=== PATIENT | female | born 1950 | race Two or more races ===

== ENCOUNTER 2018-02-07 09:55 | Outpatient (CLI) | payer OTHER | END 2018-02-07 16:02 | disposition home or self-care (01) | LOC: RAD 501 09:55 | DX: M47.817 Spondylosis without myelopathy or radiculopathy, lumbosacral region (principal); M16.11 Unilateral primary osteoarthritis, right hip; M16.12 Unilateral primary osteoarthritis, left hip ==

== ENCOUNTER 2018-12-17 12:30 | Outpatient (CLI) | payer OTHER | END 2018-12-17 13:48 | disposition home or self-care (01) | LOC: RAD 12:30 | DX: J44.9 Chronic obstructive pulmonary disease, unspecified (principal) ==

== ENCOUNTER 2019-11-13 13:33 | Outpatient (CLI) | payer OTHER | END 2019-11-13 14:29 | disposition home or self-care (01) | LOC: RAD 13:33 | DX: M12.89 Other specific arthropathies, not elsewhere classified, multiple sites (principal); J44.9 Chronic obstructive pulmonary disease, unspecified ==

== ENCOUNTER 2019-11-26 09:23 | Outpatient (CLI) | payer OTHER | END 2019-11-26 09:34 | disposition home or self-care (01) | LOC: SONOGRAMA 09:23 → MAMO-SONO 10:15 | DX: M25.511 Pain in right shoulder (principal); N63.11 Unspecified lump in the right breast, upper outer quadrant ==

== ENCOUNTER 2021-01-26 10:50 | Outpatient (CLI) | payer OTHER | END 2021-01-26 10:56 | disposition home or self-care (01) | LOC: RAD 10:50 | PROVIDERS: ATTEND Internal Medicine Cardiovascular Disease | DX: J44.9 Chronic obstructive pulmonary disease, unspecified (principal); M12.9 Arthropathy, unspecified ==

== ENCOUNTER 2021-02-09 14:05 | Outpatient (CLI) | payer OTHER | END 2021-02-09 14:12 | disposition home or self-care (01) | LOC: SONOGRAMA 14:05 → MAMO-SONO 14:45 | PROVIDERS: ATTEND Internal Medicine Cardiovascular Disease | DX: M19.90 Unspecified osteoarthritis, unspecified site (principal); M65.811 Other synovitis and tenosynovitis, right shoulder; M75.32 Calcific tendinitis of left shoulder ==

== ENCOUNTER 2021-07-12 13:07 | Outpatient (CLI) | payer OTHER ==
[~2021-07-12 13:07] MED LIST: AMLODIPINE BESYL5 MG PO; COZAAR100 MG PO; LAMICTAL200 MG PO; TENORMIN25 MG PO; ZOCOR20 MG PO; ZOLOFT50 MG PO
== END 2021-07-12 13:24 | disposition home or self-care (01) ==
LOC: MAMO-SONO 13:07
PROVIDERS: ATTEND Internal Medicine Cardiovascular Disease
DX: N63.11 Unspecified lump in the right breast, upper outer quadrant (principal); N63.12 Unspecified lump in the right breast, upper inner quadrant; Z12.31 Encounter for screening mammogram for malignant neoplasm of breast

== ENCOUNTER 2021-07-14 06:10 | Day surgery (SDC) | payer OTHER | END 2021-07-14 13:30 | disposition home or self-care (01) | LOC: CIR.AMB 06:10 | PROVIDERS: ATTEND Orthopaedic Surgery | DX: M75.41 Impingement syndrome of right shoulder (principal); M75.31 Calcific tendinitis of right shoulder ==

== ENCOUNTER 2021-11-15 11:52 | Outpatient (CLI) | payer OTHER | END 2021-11-15 11:53 | disposition home or self-care (01) | LOC: RAD 11:52 | DX: M17.12 Unilateral primary osteoarthritis, left knee (principal) ==

== ENCOUNTER → 2022-07-20 | Outpatient (CLI) | payer OTHER | END | disposition home or self-care (01) | LOC: RAD 07:17 | PROVIDERS: ATTEND Internal Medicine Cardiovascular Disease | DX: J44.9 Chronic obstructive pulmonary disease, unspecified (principal) ==

== ENCOUNTER 2022-11-07 15:33 | Inpatient (IN) | payer OTHER ==
[~2022-11-07] VITALS: Ht 172.7 cm; Wt 104.3 kg
[2022-11-16] MEDS ORDERED: XARELTO10 MG PO (11:41)
[2022-11-16] MEDS ORDERED: GABAPENTIN100 MG PO (11:41)
[2022-11-16] MEDS ORDERED: NORFLEX100MG PO (11:41)
[2022-11-16] MEDS ORDERED: OXYC1TAB9 PO (11:41)
== END 2022-11-17 00:13 | disposition home or self-care (01) | DRG 470 ==
LOC: O/R 11-14 06:55 → SURG 11-14 06:55 → SURH 11-14 07:00 → SURG 11-14 12:42
PROVIDERS: ADMIT Orthopaedic Surgery; ATTEND Orthopaedic Surgery
PROC: 0SRC0JZ Replacement of Right Knee Joint with Synthetic Substitute, Open Approach (ICD-10-PCS; principal; 2022-11-14 07:00)
DX: M17.11 Unilateral primary osteoarthritis, right knee (principal); D62 Acute posthemorrhagic anemia; M85.661 Other cyst of bone, right lower leg

== ENCOUNTER 2023-01-09 11:28 | Outpatient (CLI) | payer OTHER ==
[~2023-01-09 11:28] MED LIST changes: +GABAPENTIN100 MG PO; +NORFLEX100MG PO; +OXYC1TAB9 PO; +XARELTO10 MG PO
== END 2023-01-09 11:34 | disposition home or self-care (01) ==
LOC: RAD 11:28
PROVIDERS: ATTEND Orthopaedic Surgery
DX: M25.561 Pain in right knee (principal); M25.562 Pain in left knee

== ENCOUNTER 2023-10-25 10:47 | Outpatient (CLI) | payer OTHER | END 2023-10-25 10:52 | disposition home or self-care (01) | LOC: RAD 10:47 | PROVIDERS: ATTEND Internal Medicine Cardiovascular Disease | DX: J44.9 Chronic obstructive pulmonary disease, unspecified (principal); M12.9 Arthropathy, unspecified; M19.90 Unspecified osteoarthritis, unspecified site ==

== ENCOUNTER 2023-12-04 09:08 | Outpatient (CLI) | payer OTHER | END 2023-12-04 09:44 | disposition home or self-care (01) | LOC: MAMO-SONO 09:08 | PROVIDERS: ATTEND Internal Medicine Cardiovascular Disease | DX: N60.11 Diffuse cystic mastopathy of right breast (principal); N60.12 Diffuse cystic mastopathy of left breast; Z12.31 Encounter for screening mammogram for malignant neoplasm of breast ==

== ENCOUNTER 2023-12-31 12:57 | Outpatient (CLI) | payer OTHER | END 2023-12-31 13:00 | disposition home or self-care (01) | LOC: NUCLEAR 12:57 | PROVIDERS: ATTEND Internal Medicine Cardiovascular Disease | DX: M81.0 Age-related osteoporosis without current pathological fracture (principal); E55.9 Vitamin D deficiency, unspecified ==

== ENCOUNTER 2024-03-25 06:15 | Day surgery (SDC) | payer OTHER ==
[2024-03-18 10:44] LABS: PH,URINE 5.5 (5.0-8.0); URINE APPEARANCE Clear; URINE BILIRRUBIN Negative (NEGATIVE); URINE BLOOD Negative; URINE COLOR Dark Yellow; URINE GLUCOSE Negative (NEGATIVE); URINE LEUKOCYTE Small; URINE NITRATE Positive; URINE PROTEIN Negative (NEGATIVE); URINE UROBILINOGEN 0.2 E.U./dl
[2024-03-18 10:45] LABS: URINE EPITHELIAL CELLS 10.1 uL (0.0-38.8); URINE RBC 9.6 uL (0.0-20.8); URINE WBC 62.8 uL (0.0-23.2)
[2024-03-18 11:01] LABS: HEMOGLOBIN 14.1 g/dL (12.0-15.00); MEAN CORPUSCULAR HEMOGLOBIN 34.1 pg (27.00-32.0); MEAN CORPUSCULAR HGB CONC 34.5 g/dl (32.0-36.0); PLATELET COUNT 321 K/uL (150-450); RED BLOOD COUNT 4.14 M/uL (4.00-6.00); RED CELL DISTRIBUTION WIDTH 13.3 % (11.5-14.5)
[2024-03-18 11:28] LABS: INR 0.96; PARTIAL THROMBOPLASTIN TIME 27.6 SECONDS (22.0-34.0); PROTHROMBIN TIME 10.1 SECONDS (9.0-11.5)
[2024-03-18 11:45] LABS: ALBUMIN 3.7 gm/dL (3.4-5.0); BILIRUBIN TOTAL 0.82 mg/dL (0.3-1.2); CREATININE SERUM 0.88 mg/dL (0.55-1.02); GFR 62.47; GLOBULINA 3.2 G/DL (2.4-3.5); POTASSIUM 4.41 mEq/L (3.5-5.1); TOTAL PROTEIN 6.9 gm/dL (6.4-8.2)
[~2024-03-25 06:15] MED LIST changes: +SIMBASTATIN
[2024-03-25] MEDS ORDERED: CEFAZOLIN SODIUM 1,000 MG VIAL ONE (12:29)
[2024-03-25] MEDS ORDERED: FAMOTIDINE/PF 20 MG/10 ML SYRINGE IV SCH (14:00)
[2024-03-25] MEDS ORDERED: CEFAZOLIN SODIUM 1,000 MG VIAL IV SCH (14:00)
== END 2024-03-25 16:40 | disposition home or self-care (01) ==
LOC: CIR.AMB 06:15
PROVIDERS: ATTEND Specialist
DX: D24.2 Benign neoplasm of left breast (principal); N60.82 Other benign mammary dysplasias of left breast; R92.1 Mammographic calcification found on diagnostic imaging of breast; R00.1 Bradycardia, unspecified; F41.9 Anxiety disorder, unspecified; F32.A Depression, unspecified; M19.90 Unspecified osteoarthritis, unspecified site; H52.10 Myopia, unspecified eye
CPT/HCPCS: 19301; 19281; L8699

== ENCOUNTER 2024-08-21 10:32 | Outpatient (CLI) | payer OTHER | END 2024-08-21 10:38 | disposition home or self-care (01) | LOC: RAD 10:32 | PROVIDERS: ATTEND Internal Medicine Cardiovascular Disease | DX: J44.9 Chronic obstructive pulmonary disease, unspecified (principal); M12.9 Arthropathy, unspecified; M10.9 Gout, unspecified ==

== ENCOUNTER 2025-01-01 13:22 | Outpatient (CLI) | payer OTHER | END 2025-01-01 13:24 | disposition home or self-care (01) | LOC: MAMO-SONO 13:22 | PROVIDERS: ATTEND Obstetrics & Gynecology | DX: Z12.31 Encounter for screening mammogram for malignant neoplasm of breast (principal); M19.90 Unspecified osteoarthritis, unspecified site; J44.9 Chronic obstructive pulmonary disease, unspecified; D24.2 Benign neoplasm of left breast; D24.1 Benign neoplasm of right breast ==

== ENCOUNTER 2025-01-08 10:45 | Outpatient (CLI) | payer OTHER | END 2025-01-08 10:52 | disposition home or self-care (01) | LOC: SONOGRAMA 10:45 | PROVIDERS: ATTEND Internal Medicine Cardiovascular Disease | DX: M19.90 Unspecified osteoarthritis, unspecified site (principal) ==

== ENCOUNTER 2025-05-27 10:17 | Outpatient (CLI) | payer OTHER | END 2025-05-27 10:18 | disposition home or self-care (01) | LOC: RAD 10:17 | PROVIDERS: ATTEND Internal Medicine Cardiovascular Disease | DX: J44.9 Chronic obstructive pulmonary disease, unspecified (principal) ==

== ENCOUNTER 2025-08-26 10:53 | Outpatient (CLI) | payer OTHER | END 2025-08-26 10:56 | disposition home or self-care (01) | LOC: RAD 10:53 | PROVIDERS: ATTEND Internal Medicine Cardiovascular Disease | DX: J44.9 Chronic obstructive pulmonary disease, unspecified (principal) ==